=== PATIENT | male | born 1995 | race Caucasian/White ===

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

== ENCOUNTER 2017-03-16 12:37 | Emergency (ER) | payer OTHER ==
[~2017-03-16] VITALS: Ht 177.8 cm; Wt 76.0 kg
[2017-03-16 12:47] VITALS: TEMP 36.6; Ht 177.8 cm; Wt 76.0 kg
--- NOTE | 2017-03-16 13:05 | EMERGENCY ROOM VISIT NOTE ---
ED Visit Note First contact with patient: 12:49 CHIEF COMPLAINT: Head injury HISTORY OF PRESENT ILLNESS: This 21-year-old male patient presented to the emergency department ambulatory after receiving a head injury 4 days ago when he was wrestling with a friend, was thrown backwards and struck the back of his head on the ground. There was a brief loss of consciousness but no vomiting. No difficulty with speech. The headache has been dull. The patient complains of no neck pain. No loss of apetite or unusual behavior since the injury. The patient has taken nothing for the pain. The patient rates the pain as 1/10 and moderate. The patient denies any changes in their vision or hearing. The patient denies bowel or bladder dysfunction. The patient denies abdominal pain. The patient states that he was seen at an emergency department at that time as he was on a camping trip. He had a negative CT scan. He states that he was at work today and had a few moments of being very disoriented and confused. He states that has resolved. REVIEW OF SYSTEMS: A 6 system review of systems was completed with positives and pertinent negatives listed in the HPI. ALLERGIES: No known drug allergies MEDICATIONS: None PMH: None SOCIAL HISTORY: The patient lives locally with family PHYSICAL EXAM: Vital Signs: Reviewed Nurse's notes, vital signs stable. GENERAL : This is a 21-year-old male, in no acute distress, well-developed, well- nourished. NEURO: The patient is alert, oriented to person place and time, and coherent. Normal mini mental status exam. Negative Romberg and pronator drift. Cerebellar function intact. HEAD: Normocephalic and atraumatic. EYES: Pupils are equal round and reactive to light and accommodation. EOMs are full and optic discs and fundi are normal. There is no swelling or discoloration of the tissue surrounding the eyes. EARS: External auditory canals clear without blood. NOSE: Patent without tenderness. No septal hematoma. FACE: No facial tenderness. NECK: Supple. There is no cervical spine tenderness. The patient does not have tenderness with movement of the neck. ED COURSE: I examined the patient. The patient suffered a head injury 3 days ago when he fell on the ground and struck the back of his head and had a positive loss of consciousness. He was seen at an emergency department and had a negative CT scan. They will back to work. He states that he had a period of confusion. He was feeling better after arriving at the emergency department. I discussed the risks, benefits and alternatives of repeat CT imaging of his brain. I advised the patient that the likelihood of intracranial bleeding is low and this likely represents postconcussive symptoms. The patient would like to proceed with a CT scan at this time. CT imaging was obtained and was negative. The patient was given instructions to follow-up with the concussion clinic. He was given a note for work. He should rest. He should return with any worsening symptoms. The patient was discharged home in good condition ambulatory. [~ rep ct add3]] HEAD CT NONCONTRAST CT DOSE: 537.48 mGy.cm HISTORY: fall, head injury TECHNIQUE: Multiaxial CT images of the head were performed without the use of intravenous contrast. Automated exposure control was utilized for this study. Comparison: None. Findings: The paranasal sinuses and mastoid air cells are clear. The calvarium and skull base are intact. The ventricles and sulci are within normal limits. There is no mass, hematoma, midline shift, or acute infarct. Impression: No acute intracranial abnormality. DIAGNOSIS: Head injury GCS 15 Medication Reconciliation: I attest that I have personally reviewed the patient' s current medication list. Blood pressure screening: The patient was found to have normal blood pressure on screening and does not require follow-up Current/Historical Medications Scheduled PRN Acetaminophen (Tylenol), 650 MG PO UD PRN for Pain Allergies Coded Allergies: No Known Allergies (Unverified , 03/16/17) Vital Signs Date Time Temp Pulse Resp B/P (MAP) Pulse Ox O2 Delivery O2 Flow Rate FiO2 03/16/17 14:01 62 18 125/70 98 03/16/17 12:47 36.6 76 16 107/70 97 Room Air Departure Information Impression Primary Impression: Concussion Additional Impression: Head injury Dispostion Home / Self-Care Condition GOOD Forms HOME CARE DOCUMENTATION FORM, IMPORTANT VISIT INFORMATION, Work Instructions Return To Work: 3 days Patient Instructions Concussion, [facility] Additional Instructions Contact the concussion clinic at [facility] ([phone]) to schedule a follow-up appointment for further evaluation and management. Their office is located at [address] [place] [address]. [address] No gym or athletics for one week after symptoms resolve Problem Qualifiers
--- NOTE | 2017-03-16 13:21 | DIAGNOSTIC IMAGING REPORT ---
HEAD CT NONCONTRAST CT DOSE: 537.48 mGy.cm HISTORY: fall, head injury TECHNIQUE: Multiaxial CT images of the head were performed without the use of intravenous contrast. Automated exposure control was utilized for this study. Comparison: None. Findings: The paranasal sinuses and mastoid air cells are clear. The calvarium and skull base are intact. The ventricles and sulci are within normal limits. There is no mass, hematoma, midline shift, or acute infarct. Impression: No acute intracranial abnormality. Electronically signed by: Chalino Wells M.D. 03/16/2017 1:20 PM Dictated Date/Time: 03/16/2017 1:17 PM
[2017-03-16] MEDS ORDERED: ACET-1311 PO (13:31)
[2017-03-16 14:01] VITALS: BP 125/70; PULSE 62; O2SAT 98
== END 2017-03-16 14:02 | disposition home or self-care (01) ==
LOC: C.EDB 12:38 → C.EDD 14:02
DX: S06.0X1A Concussion with loss of consciousness of 30 minutes or less, initial encounter (principal); Y93.83 Activity, rough housing and horseplay; Y92.89 Other specified places as the place of occurrence of the external cause

== ENCOUNTER → 2017-09-28 | Outpatient (CLI) | payer OTHER | END | disposition home or self-care (01) | LOC: C.LABSPEC 17:07 | PROVIDERS: ATTEND Podiatrist Primary Podiatric Medicine | DX: B35.1 Tinea unguium (principal) ==